=== PATIENT | male | born 1945 | race Native Hawaiian/Other Pacific Islander ===

== ENCOUNTER 2020-12-27 23:44 | Emergency (ER) | payer OTHER ==
[~2020-12-27] VITALS: Ht 198.1 cm; Wt 70.3 kg
[2020-12-28 00:10] VITALS: BP 158/82; TEMP 99.2
[2020-12-28 00:18] LABS: PLATELET COUNT 202 K/uL (142-355)
[2020-12-28 00:23] LABS: POTASSIUM 3.6 mmol/L (3.6-5.2)
[2020-12-28] MEDS ORDERED: DULO30CA PO (10:22)
[2020-12-28] MEDS ORDERED: RIVASTIGMINE1.5 MG PO (10:28)
[2020-12-28] MEDS ORDERED: ALBUTEROL108 MCG/AC IN (10:34)
[2020-12-28] MEDS ORDERED: ATROVENT HFA17 MCG INH (10:39)
[2020-12-28] MEDS ORDERED: B121000 MC1 PO (10:50)
[2020-12-28] MEDS ORDERED: MEGE40TA32 PO (10:51)
[2020-12-28] MEDS ORDERED: TAMS0.4C PO (10:55)
[2020-12-28] MEDS ORDERED: MYRBETRIQ25 MG PO (11:03)
[2020-12-28] MEDS ORDERED: PHEN100T3 PO (11:04)
[2020-12-28] MEDS ORDERED: THIA100T8 PO (11:07)
[2020-12-28] MEDS ORDERED: ALBUTEROL108 MCG/AC INH (11:21)
== END 2020-12-28 02:43 | disposition other institution (70) ==
LOC: ED 23:44
PROVIDERS: Family Medicine
DX: R46.89 Other symptoms and signs involving appearance and behavior (principal); J44.9 Chronic obstructive pulmonary disease, unspecified; Z11.52 Encounter for screening for COVID-19; Z04.6 Encounter for general psychiatric examination, requested by authority
CPT/HCPCS: 36415; 80053; 81000; 85027; 87635; 93005; 99283; U0003